=== PATIENT | female | born 1990 | race African-American/Black ===

== ENCOUNTER 2024-04-09 15:19 | Emergency (ER) | payer OTHER ==
[~2024-04-09] VITALS: Ht 147.3 cm; Wt 44.0 kg
[2024-04-09 15:27] VITALS: BP 119/78; RESP 16; TEMP 98.6; O2SAT 98
[2024-04-09 15:31] VITALS: PULSE 102; O2SAT 99
[2024-04-09] MEDS ORDERED: NAPR-681 PO (17:02)
== END 2024-04-09 18:18 ==
LOC: ER 15:19
DX: S93.522A Sprain of metatarsophalangeal joint of left great toe, initial encounter (principal); W18.30XA Fall on same level, unspecified, initial encounter; Y93.89 Activity, other specified; Y92.89 Other specified places as the place of occurrence of the external cause; Y99.8 Other external cause status
CPT/HCPCS: 73630; 99283

== ENCOUNTER 2024-08-03 16:42 | Emergency (ER) | payer OTHER ==
[~2024-08-03] VITALS: Ht 152.4 cm; Wt 47.0 kg
[~2024-08-03 16:42] MED LIST: NAPR-681 PO
[2024-08-03 16:47] VITALS: O2SAT 99
[2024-08-03 16:56] VITALS: BP 123/65; PULSE 75; RESP 16; TEMP 98.5; O2SAT 100
[2024-08-03 20:27] LABS: CLARITY URINE CLEAR (CLEAR); COLOR URINE YELLOW (YELLOW); GLUCOSE URINE NEGATIVE (NEGATIVE); KETONES URINE TRACE (NEGATIVE); LEUKOCYTE ESTERASE URINE NEGATIVE (NEGATIVE); NITRITE URINE NEGATIVE (NEGATIVE); OCCULT BLOOD URINE NEGATIVE (NEGATIVE); PROTEIN URINE TRACE (NEGATIVE); SPECIFIC GRAVITY URINE 1.033 (1.005-1.030)
[2024-08-03 20:52] LABS: WBC URINE NONE SEEN /hpf (0-2)
[2024-08-03 20:53] LABS: BACTERIA URINE NONE SEEN; RBC URINE NONE SEEN /hpf (0-2); SQUAMOUS EPITHELIAL CELL URINE NONE SEEN /lpf (RARE/1+)
[2024-08-03 23:20] LABS: BASOPHILS % 0.5 % (0.0-2.0); EOSINOPHILS % 0.4 % (0.0-5.0); HEMOGLOBIN. 11.8 g/dL (12.0-16.0); LYMPHOCYTES % 35.2 % (20.0-50.0); MEAN CORPUSCULAR HEMOGLOBIN 31.5 pg (28.0-32.0); MEAN CORPUSCULAR HGB CONC 34.7 g/dL (31.0-37.0); MEAN CORPUSCULAR VOLUME 90.8 fL (81.0-99.0); MEAN PLATELET VOLUME 8.4 fl (7.4-10.4); MONOCYTES % 7.7 % (2.0-8.0); NEUTROPHILS % 56.2 % (40.0-76.0); PLATELET 338 x1000/uL (130-400); RED BLOOD CELL COUNT 3.74 mill/uL (4.2-5.4); RED CELL DISTRIBUTION WIDTH 13.1 % (11.6-14.6); WHITE BLOOD COUNT 6.3 x1000/uL (4.5-11.0)
[2024-08-03 23:27] LABS: CHLORIDE 108 mEq/L (98-107); POTASSIUM 3.5 mEq/L (3.5-5.1); SODIUM 139 mEq/L (136-145)
[2024-08-03 23:28] LABS: CALCIUM 9.2 mg/dL (8.7-10.4); CARBON DIOXIDE 22 mEq/L (21-32)
[2024-08-03 23:33] LABS: CREATININE 0.6 mg/dL (0.6-1.0); GLUCOSE 97 mg/dL (70-105); UREA NITROGEN BLOOD 9 mg/dL (9-23)
[2024-08-03 23:48] LABS: B-HCG QUANTITATIVE 80601 mIU/mL (<3)
== END 2024-08-04 00:39 | disposition home or self-care (01) ==
LOC: ER 16:42
DX: O20.8 Other hemorrhage in early pregnancy (principal); Z3A.08 8 weeks gestation of pregnancy; O20.0 Threatened abortion; Z3A.10 10 weeks gestation of pregnancy
CPT/HCPCS: 36415; 76801; 80048; 81003; 81025; 84702; 85025; 86850; 86900; 99284

== ENCOUNTER 2024-12-18 16:30 | Emergency (ER) | payer OTHER ==
[~2024-12-18] VITALS: Ht 165.1 cm; Wt 49.0 kg
[2024-12-18 16:32] VITALS: O2SAT 98
[2024-12-18 17:05] LABS: BASOPHILS % 0.2 % (0.0-2.0); EOSINOPHILS % 0.4 % (0.0-5.0); HEMATOCRIT. 34.7 % (36.0-48.0); HEMOGLOBIN. 12.1 g/dL (12.0-16.0); LYMPHOCYTES % 24.2 % (20.0-50.0); MEAN CORPUSCULAR HEMOGLOBIN 31.6 pg (28.0-32.0); MEAN CORPUSCULAR HGB CONC 34.8 g/dL (31.0-37.0); MEAN CORPUSCULAR VOLUME 91.1 fL (81.0-99.0); MEAN PLATELET VOLUME 9.2 fl (7.4-10.4); MONOCYTES % 10.3 % (2.0-8.0); NEUTROPHILS % 64.9 % (40.0-76.0); PLATELET 227 x1000/uL (130-400); RED BLOOD CELL COUNT 3.81 mill/uL (4.2-5.4); RED CELL DISTRIBUTION WIDTH 12.7 % (11.6-14.6)
[2024-12-18 17:10] LABS: CHLORIDE 108 mEq/L (98-107); POTASSIUM 4.4 mEq/L (3.5-5.1); SODIUM 136 mEq/L (136-145)
[2024-12-18 17:11] LABS: CALCIUM 8.9 mg/dL (8.7-10.4); CARBON DIOXIDE 23 mEq/L (21-32)
[2024-12-18 17:14] LABS: INR 0.9; PARTIAL THROMBOPLASTIN TIME 25.9 sec (23.4-31.0)
[2024-12-18 17:16] LABS: CREATININE 0.6 mg/dL (0.6-1.0); GLUCOSE 89 mg/dL (70-105); UREA NITROGEN BLOOD 8 mg/dL (9-23)
[2024-12-18 17:40] VITALS: BP 102/69; PULSE 87; RESP 20; TEMP 36.8; O2SAT 98
[2024-12-18] MEDS: SODIUM CHLORIDE 0.9% 1,000 ML IV ONE (17:45)
== END 2024-12-18 18:28 | disposition short-term general hospital (02) ==
LOC: ER 17:06
DX: O44.13 Complete placenta previa with hemorrhage, third trimester (principal); Z3A.29 29 weeks gestation of pregnancy
CPT/HCPCS: 99291; 96360; 80048; 85025; 85610; 85730; 86850; 86900; 86901; 36415; 76815; J7030